=== PATIENT | female | born 1985 | race American Indian/Alaskan Native ===

== ENCOUNTER 2019-11-05 09:36 | Emergency (ER) | payer MEDICAID ==
[2019-11-05 09:47] VITALS: BP 123/83
[2019-11-05 10:27] LABS: Bacteria,Urine 1+ /HPF (Negative); Bilirubin,Urine NEG (Negative); Blood,Urine LG (Negative); Color,Urine Yellow (Yellow); Mucus,Urine 1+ /HPF; Protein,Urine <15 mg/dL mg/dL (Negative); Urobilinogen,Urine < 2.0 mg/dL (<2.0)
--- NOTE | 2019-11-05 12:34 | Emergency Department Report ---
ED Female HPI - General Chief complaint: Vaginal Bleeding Stated complaint: VAG BLEEDING Time Seen by Provider: 11/05/19 12:24 Source: patient Mode of arrival: Ambulatory Limitations: No Limitations - History of Present Illness Initial comments: 34 yo female states she 3 months . Having sex at 3am this morning she had vaginal bleeding after and continues to spot. Denies abdominal pain. Misc. 1. 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 denies: dysuria, hematuria Musculoskeletal: denies: back pain ED Past Medical Hx - Past Medical History Previous Medical History?: Yes Additional medical history: pre-eclampsia - Surgical History Past Surgical History?: No - Social History Smoking Status: Never Smoker ED Physical Exam - General Limitations: No Limitations General appearance: alert, in no apparent distress - Head Head exam: Present: atraumatic - Eye Eye exam: Present: normal appearance. Absent: scleral icterus - ENT ENT exam: Present: normal exam - Respiratory Respiratory exam: Present: normal lung sounds bilaterally. Absent: respiratory distress - Cardiovascular Cardiovascular Exam: Present: regular rate, normal heart sounds - GI/Abdominal GI/Abdominal exam: Present: soft, normal bowel sounds. Absent: distended, tenderness, guarding, rebound - Rectal Rectal exam: Present: deferred - Extremities Exam Extremities exam: Present: normal inspection, full ROM, normal capillary refill. Absent: tenderness, pedal edema, calf tenderness - Back Exam Back exam: Present: normal inspection - Neurological Exam Neurological exam: Present: alert - Psychiatric Psychiatric exam: Present: normal affect - Skin Skin exam: Present: warm, dry, intact, normal color ED Course Vital Signs 11/05/19 09:41 Temperature 98.5 F Pulse Rate 101 H Respiratory 18 Rate Blood Pressure 123/83 O2 Sat by Pulse 96 Oximetry ED Medical Decision Making - Lab Data Result diagrams: 11/05/19 12:17 11/05/19 12:17 - Radiology Data Radiology results: report reviewed Transvaginal US IMPRESSION: 1. Single, living intrauterine with estimated sonographic age of 17 weeks, 0 day(s). 2. No significant sonographic abnormality - Medical Decision Making 34 female present to ER with c/o vaginal bleeding after sex. She's 17 weeks pre gnant. Prior to arrival to ER bleeding had subsided. She denies any abdominal pain. She has not seen OB-WAVE SOLDERING MACHINE OPERATOR yet . US shows IMPRESSION: 1. Single, living intrauterine with estimated sonographic age of 17 weeks, 0 day(s). 2. No significant sonographic abnormality ABO 0+ HCG Quant 8924 Pt has appointment with [facility] on 11/11/19. Safe to discharge home with outpt follow up Critical care attestation.: If time is entered above; I have spent that time in minutes in the direct care of this critically ill patient, excluding procedure time. ED Disposition Clinical Impression: Vaginal bleeding during Qualifiers: Weeks of gestation: 17 weeks Qualified Code(s): Z3A.17 - 17 weeks gestation of Disposition: DC-01 TO HOME OR SELFCARE Is pt being admited?: No Does the pt Need Aspirin: No Condition: Stable Instructions: (ED) Additional Instructions: Follow up with [facility] as scheduled for 11/11/19. Rest, no sex until cleared by OB-WAVE SOLDERING MACHINE OPERATOR, Drink plenty fluids. Return to ER FOR ABDOMINAL PAIN AND INCREASED VAGINAL BLEEDING Referrals: [facility] [Other] - 3-5 Days Time of Disposition: 15:21
[2019-11-05 12:39] LABS: Basophils % (Auto) 0.5 % (0.0-1.8); Eosinophils # (Auto) 0.2 K/mm3 (0.0-0.4); Eosinophils % (Auto) 1.6 % (0.0-4.3); Hematocrit 35.1 % (30.3-42.9); Hemoglobin 11.8 gm/dl (10.1-14.3); Lymphocytes # (Auto) 2.6 K/mm3 (1.2-5.4); Lymphocytes % (Auto) 26.4 % (13.4-35.0); Mean Corpuscular HGB Conc 34 % (30-34); Mean Corpuscular Volume 87 fl (79-97); Platelet Count 182 K/mm3 (140-440); Red Blood Count 4.04 M/mm3 (3.65-5.03); Red Cell Distribution Width 15.3 % (13.2-15.2)
[2019-11-05 13:06] LABS: BUN/Creatinine Ratio 13; Blood Urea Nitrogen 5 mg/dL (7-17); Calcium 9.4 mg/dL (8.4-10.2); Hemolysis Index 4
--- NOTE | 2019-11-05 15:07 | Ultrasound Report ---
ULTRASOUND OBSTETRIC INDICATION / CLINICAL INFORMATION: vaginal bleeding. Clinical Gestational Age (GA): TECHNIQUE: Transabdominal and Transvaginal. COMPARISON: None available. FINDINGS: There is a single intrauterine . Biparietal Diameter = 3.47 cm = 16 weeks, 5 day(s). Head Circumference = 10.4 cm = 16 weeks, 4 day(s). Abdominal Circumference = 12.5 cm = 17 weeks, 5 day(s). Femur Length = 2.1 cm = 16 weeks, 5 day(s). Average Ultrasound Age (AUA) = 17 weeks, 0 day(s). Heart Rate: 164 beats per minute. Estimated Weight in grams (if calculated): 185 +/- 27 g Estimated Weight Growth Percentile (if calculated): Not calculated Position: breech. Cervix: closed. Length in cm (if measured): Not measured Placenta: posterior, grade 1 and free of the os. Amniotic Fluid Volume: normal Amniotic Fluid Index (JO ANN) in cm (if calculated): Not measured. Maternal Adnexa: No significant abnormality. Additional findings: Small amount of dependent sludge in urinary bladder IMPRESSION: 1. Single, living intrauterine with estimated sonographic age of 17 weeks, 0 day(s). 2. No significant sonographic abnormality. Signer Name: Jonathon Buckley MD Signed: 11/05/2019 3:02 PM Workstation Name: [id number]
== END 2019-11-05 15:31 | disposition home or self-care (01) ==
LOC: ED 09:36
DX: O20.8 Other hemorrhage in early pregnancy (principal); Z3A.17 17 weeks gestation of pregnancy
CPT/HCPCS: 36415; 76801; 76830; 80048; 81001; 84702; 84703; 85025; 86900; 86901

== ENCOUNTER 2021-12-16 12:01 | Outpatient (CLI) | payer OTHER ==
[2021-12-16 16:29] LABS: Hematocrit 35.9 % (30.3-42.9); Mean Corpuscular HGB Conc 33 % (30-34); Mean Corpuscular Volume 85 fl (79-97); Red Blood Count 4.23 M/mm3 (3.65-5.03); Red Cell Distribution Width 16.6 % (13.2-15.2)
[2021-12-16 16:31] LABS: Platelet Count 193 K/mm3 (140-440)
[2021-12-16 16:39] VITALS: BP 135/78
[2021-12-16 16:49] LABS: Alanine Aminotransferase 6 units/L (7-56); Uric Acid 4.4 mg/dL (3.5-7.6)
[2021-12-16 17:40] LABS: Bilirubin,Urine NEG (Negative); Blood,Urine NEG (Negative); Color,Urine Yellow (Yellow); Mucus,Urine 1+ /HPF; Urobilinogen,Urine < 2.0 mg/dL (<2.0)
--- NOTE | 2021-12-16 18:15 | Ultrasound Report ---
ULTRASOUND BIOPHYSICAL PROFILE INDICATION / CLINICAL INFORMATION: non- reactive nst. distress. COMPARISON: None available. FINDINGS: BREATHING MOVEMENT = 2 GROSS BODY MOVEMENT = 2 TONE = 2 QUALITATIVE AMNIOTIC FLUID VOLUME = 2 TOTAL BIOPHYSICAL SCORE = 06/02 AMNIOTIC FLUID INDEX (cm) = 12.2 PRESENTATION: Cephalic. HEART RATE (beats per minute): 150 IMPRESSION: 1. biophysical profile = 06/02 Signer Name: Tony Self MD Signed: 12/16/2021 6:10 PM Workstation Name: [id number]
== END 2021-12-16 18:09 | disposition home or self-care (01) ==
LOC: TRG 12:01 → APU 12:03 → TRG 18:09
PROVIDERS: ATTEND Obstetrics & Gynecology
DX: Z34.93 Encounter for supervision of normal pregnancy, unspecified, third trimester (principal); Z3A.40 40 weeks gestation of pregnancy
CPT/HCPCS: 36415; 59025; 76815; 76819; 81001; 82565; 83615; 84450; 84460; 84550; 85027

== ENCOUNTER 2021-12-17 06:39 | Inpatient (IN) | payer OTHER ==
[2021-12-17] MEDS ORDERED: OXYTOCIN 10 UNIT/1 ML INJ ONE (06:54)
--- NOTE | 2021-12-17 07:03 | History and Physical Report ---
History of Present Illness Date of examination: 12/17/21 Date of admission: 12/17/21 06:56 Chief complaint: Labor History of present illness: 36 y/o at 40-5/7 weeks presents to OBT reporting regular and painful CTX q 5 min. No VB or LOF. Good FM. Her SVE= 8 cm dilated in OBT. She is admitted to L&D inactive labor. Past History Past Medical History: no pertinent history Past Surgical History: no surgical history Family/Genetic History: none Social history: no significant social history - Obstetrical History Expected Date of Delivery: 12/12/21 Actual Gestation: 40 Week(s) 5 Day(s) : 5 Para: 3 Hx # Term Pregnancies: 3 Spontaneous Abortions: 1 Medications and Allergies Allergies Allergy/AdvReac Type Severity Reaction Status Date / Time No Known Allergies Allergy Verified 11/05/19 09:47 Home Medications Medication Instructions Recorded Confirmed Last Taken Type Aspirin 81 mg PO DAILY 04/05/20 04/05/20 Unknown History Iron 1 tab PO DAILY 04/05/20 04/05/20 Unknown History Vitamin 1 tab PO DAILY 04/05/20 04/05/20 Unknown History Review of Systems All systems: negative - Physical Exam Breasts: Positive: normal Cardiovascular: Regular rate Lungs: Positive: Normal air movement Abdomen: Positive: normal appearance Genitourinary (Female): Positive: normal external genitalia Vulva: both: normal Vagina: Positive: normal moisture Uterus: Positive: enlarged Adnexa: both: normal Anus/Rectum: Positive: normal perianal skin Extremities: Positive: normal Deep Tendon Reflex Grade: Normal +2 - Obstetrical FHR: category 1 Uterine Contraction Monitor Mode: Palpation Cervical Dilatation: 8 Cervical Effacement Percentage: 100 station: 0 Uterine Contraction Frequency (min): 5 Uterine Contraction Pattern: Regular Uterine Contraction Intensity: Moderate Results All other labs normal. Assessment and Plan - Patient Problems (1) 40 weeks gestation of Current Visit: Yes Status: Acute Plan to address problem: care is up-to-date at [facility]. (2) Postmaturity , 40-42 weeks gestation Current Visit: Yes Status: Acute Plan to address problem: The patient was scheduled for IOL later this afternoon. However, she is in active labor now. (3) Labor abnormality, antepartum Current Visit: Yes Status: Acute Plan to address problem: Admit to L&D. Expectant management for now. I expect .
[2021-12-17] MEDS ORDERED: ACETAMINOPHEN 325 MG TAB PO PRN ×2 (07:09→08:00)
--- NOTE | 2021-12-17 07:09 | Procedure Note ---
OB Delivery Note - Delivery Date of Delivery: 12/17/21 Surgeon: MARY ANN JACQUES Estimated blood loss: 300cc - Vaginal Delivery presentation: vertex Delivery position: OA Intrapartum events: precipitous labor- <3hr Delivery induction: none Delivery monitor: external FHT, external uterine Route of delivery: Delivery placenta: spontaneous Delivery cord: 3 umbilical vessels Episiotomy: none Anesthesia: none - Infant A at 1 minute: 8 at 5 minutes: 9 Infant Gender: Male
[2021-12-17 07:31] LABS: Hematocrit 35.4 % (30.3-42.9); Hemoglobin 11.6 gm/dl (10.1-14.3); Mean Corpuscular HGB Conc 33 % (30-34); Mean Corpuscular Volume 84 fl (79-97); Platelet Count 175 K/mm3 (140-440)
[2021-12-17] MEDS: IBUPROFEN 800 MG TAB PO SCH ×2 (07:43→16:57)
[2021-12-17] MEDS ORDERED: OXYTOCIN DRIP 30 UNITS/500 ML BAG IV SCH (08:00)
[2021-12-17] MEDS ORDERED: ePHEDrine SULFATE 50 MG/1 ML INJ IV PRN (08:00)
[2021-12-17] MEDS ORDERED: LANOLIN/ZINC/DIMETHICONE (LANSINOH) 7 GM TP PRN (08:00)
[2021-12-17] MEDS ORDERED: ONDANSETRON 4 MG/2 ML INJ IV PRN (08:00)
[2021-12-17] MEDS ORDERED: BENZOCAINE/MENTHOL 20/0.5% TOP SPRAY 56 GM TP PRN (08:00)
[2021-12-17] MEDS ORDERED: WITCH HAZEL/ GLYCERIN PAD TP PRN (08:00)
[2021-12-17] MEDS ORDERED: diphenhydrAMINE 25 MG CAP PO PRN (08:00)
[2021-12-17] MEDS ORDERED: HYDROcodone/ACETAMINOPHEN 5-325 MG TAB PO PRN (08:00)
[2021-12-17] MEDS ORDERED: fentaNYL 100 MCG/2 ML INJ IV PRN (08:00)
[2021-12-17] MEDS ORDERED: BUTORPHANOL 2 MG/1 ML INJ IV PRN (08:00)
[2021-12-17] MEDS ORDERED: PROMETHAZINE 25 MG TAB PO PRN (08:00)
[2021-12-17] MEDS ORDERED: LACTATED RINGERS 1,000 ML IV SCH (08:00)
[2021-12-17] MEDS ORDERED: HYDROCORTISONE 25 MG RECTAL SUPP PR PRN (10:00)
[2021-12-17] MEDS ORDERED: MAGNESIUM HYDROXIDE (MOM) ORAL LIQD UDC PO PRN (22:00)
[2021-12-18] MEDS: IBUPROFEN 800 MG TAB PO SCH ×4 (00:30→21:14)
[2021-12-18 00:58] LABS: Hematocrit 33.7 % (30.3-42.9); Hemoglobin 10.7 gm/dl (10.1-14.3)
[2021-12-18] MEDS ORDERED: TETANUS,DIPH,PERTUSS(ACELL) VACCINE 0.5 ML SYRINGE IM ONE (06:00)
[2021-12-18] MEDS: DOCUSATE SODIUM 100 MG CAP PO SCH ×3 (06:55→21:14)
[2021-12-18] MEDS: PRENATAL VIT27-FE FUMARATE-FOLIC ACID VIT TAB PO SCH (10:40)
--- NOTE | 2021-12-18 11:40 | Progress Note ---
Assessment and Plan A: PP Day #1 Stable P: Follow Routine Orders D/C home in the AM RTO in 6 Weeks Subjective - Subjective Date of service: 12/18/21 Patient reports: appetite normal, voiding normally, pain well controlled, flatus, ambulating normally [place]: doing well, bottle feeding (and ) Objective - Vital Signs Latest vital signs: Vital Signs Temp Pulse Resp BP BP Pulse Ox Pulse Ox 12/18/21 08:52 98.1 F 80 18 135/72 94 12/18/21 06:46 97 12/18/21 00:35 98.3 F 72 20 130/85 100 12/17/21 20:00 97 12/17/21 19:00 97 12/17/21 15:06 98.0 F 95 H 18 130/83 97 Intake and Output 12/17/21 12/18/21 12/18/21 22:59 06:59 14:59 Intake Total 120 Output Total 100 Balance 20 Intake: Oral 120 Output: Urine 100 Void 100 Other: Total, Intake Amount 120 Total, Output Amount 100 # Voids Void 3 - Exam Breasts: Present: normal Cardiovascular: Present: Regular rate Lungs: Present: Clear to auscultation, Normal air movement Abdomen: Present: normal appearance, soft, normal bowel sounds Uterus: Present: normal, firm, fundal height below umbilicus Extremities: Present: normal
--- NOTE | 2021-12-18 11:41 | Discharge Summary ---
Providers - Providers Date of Admission: 12/17/21 06:56 Date of discharge: 12/19/21 Attending physician: UCHE LAND Primary care physician: UCHE LAND Hospitalization Reason for admission: active labor Delivery: Episiotomy: none Laceration: none Other procedures: none complications: none Discharge diagnosis: IUP at term delivered [place] baby: male Condition at discharge: Good Disposition: 01 HOME / SELF CARE / HOMELESS Plan - Provider Discharge Summary Activity: routine, no sex for 6 weeks, no heavy lifting 4 weeks, no strenuous exercise Diet: routine Additional instructions: [] Smoking cessation referral if applicable(refer to patient education folder for contact #) [] Refer to [facility] Booklet Call your doctor immediately for: * Fever > 100.5 * Heavy vaginal bleeding ( >1 pad per hour) * Severe persistent headache * Shortness of breath * Reddened, hot, painful area to leg or breast * Drainage or odor from incision. * Keep incision clean and dry at all times and follow doctor's instructions regarding bathing/showering - Follow up plan Follow up: UCHE LAND MD [Primary Care Provider] - 6 Weeks
[2021-12-18] MEDS ORDERED: FLU VACC QUAD 2021-22(6MOS UP)/PF 60 MCG/0.5 ML SYRINGE IM ONE (12:00)
[2021-12-19] MEDS: IBUPROFEN 800 MG TAB PO SCH (06:19)
[2021-12-19] MEDS: PRENATAL VIT27-FE FUMARATE-FOLIC ACID VIT TAB PO SCH (10:39)
[2021-12-19] MEDS: DOCUSATE SODIUM 100 MG CAP PO SCH (10:39)
[2021-12-19 15:14] VITALS: BP 132/85
== END 2021-12-19 12:45 | disposition home or self-care (01) | DRG 775 ==
LOC: TRG 06:39 → LD 06:41 → TRG 06:55 → LD 06:56 → OB 08:20
PROVIDERS: ADMIT Obstetrics & Gynecology; ATTEND Obstetrics & Gynecology
PROC: 10E0XZZ Delivery of Products of Conception, External Approach (ICD-10-PCS; principal; 2021-12-17)
PROC: 3E0234Z Introduction of Serum, Toxoid and Vaccine into Muscle, Percutaneous Approach (ICD-10-PCS; 2021-12-18)
DX: O48.0 Post-term pregnancy (principal); Z3A.40 40 weeks gestation of pregnancy; Z37.0 Single live birth; O62.3 Precipitate labor; Z20.822 Contact with and (suspected) exposure to COVID-19; Z23 Encounter for immunization
CPT/HCPCS: 36415; 85014; 85018; 85027; 86592; 86850; 86900; 86901; 90471; 90686; 90715; 99211; G0378; G0463; J2590; U0003